=== PATIENT | female | born 1990 | race Caucasian/White ===

== ENCOUNTER 2024-04-30 05:24 | Emergency (ER) | payer BC ==
[~2024-04-30] VITALS: Ht 162.6 cm; Wt 77.2 kg
[2024-04-30] MEDS: normal saline 1000ML IV soln IVB ONE ×2 (06:05→10:36)
[2024-04-30 06:21] LABS: BASOPHILS % (AUTO) 0.3 % (0-1); EOSINOPHILS # (AUTO) 0.1 X10'3 (0-0.9); EOSINOPHILS % (AUTO) 1.4 % (0-6); HEMATOCRIT 39.7 % (35.0-45.0); HEMOGLOBIN 13.5 g/dl (12.0-16.0); LYMPHOCYTES # (AUTO) 1.4 X10'3 (1.1-4.8); LYMPHOCYTES % (AUTO) 17.7 % (21-51); MEAN CORPUSCULAR HEMOGLOBIN 29.5 PG (27.0-31.0); MEAN CORPUSCULAR HGB CONC 34.1 g/dL (33.0-36.5); MEAN CORPUSCULAR VOLUME 86.5 FL (78-98); MEAN PLATELET VOLUME 7.7 FL (7.4-10.4); MONOCYTES # (AUTO) 0.7 X10'3 (0-0.9); MONOCYTES % (AUTO) 8.5 % (2-12); NEUTROPHILS # (AUTO) 5.8 X10'3 (1.8-7.7); NEUTROPHILS % (AUTO) 72.1 % (42-75); PLATELET COUNT 253 X10'3 (140-440); RED BLOOD COUNT 4.59 X10'6 (4.20-5.60); RED CELL DISTRIBUTION WIDTH 12.9 % (11.5-14.5); WHITE BLOOD COUNT 8.1 X10'3 (4.5-11.0)
[2024-04-30 06:34] LABS: ALANINE AMINOTRANSFERASE 20 U/L (12-78); ALBUMIN 3.3 G/DL (3.4-5.0); ALBUMIN/GLOBULIN RATIO 0.9 (1.1-1.5); ALKALINE PHOSPHATASE 57 IU/L (46-116); ANION GAP 9 (8-16); ASPARTATE AMINO TRANSFERASE 13 U/L (10-37); BILIRUBIN,TOTAL 0.5 MG/DL (0.1-1.0); BLOOD UREA NITROGEN 9 MG/DL (7-18); BUN/CREATININE RATIO 11.7 (10.0-20.0); CALCIUM 8.5 MG/DL (8.5-10.1); CHLORIDE 107 MMOL/L (99-107); CREATININE 0.77 MG/DL (0.40-0.90); GLUCOSE 112 MG/DL (70-104); LIPASE 27 U/L (16-77); POTASSIUM 3.4 MMOL/L (3.5-5.1); SODIUM 141 MMOL/L (135-145); TOTAL CARBON DIOXIDE 24.7 MMOL/L (24-32); TOTAL PROTEIN 6.9 G/DL (6.4-8.2); eCRCL 90 ML/MIN; eGFR 86 ML/MIN
[2024-04-30 07:55] LABS: URINE HCG NEGATIVE (NEG)
[2024-04-30] MEDS: ketorolac trometh 15mg/ml vial 15 MG/ML ML IV ONE (07:58)
[2024-04-30 08:09] LABS: BILIRUBIN,URINE SMALL (Neg); CLARITY,URINE SLIGHTLY CLOUDY (Clear); COLOR,URINE YELLOW (Yellow); GLUCOSE, URINE NEGATIVE (Neg); KETONES,URINE 15 mg/dl (Neg); LEUKOCYTE ESTERASE ,URINE NEGATIVE (Neg); NITRITES, URINE NEGATIVE (Neg); OCCULT BLOOD,URINE MODERATE (Neg); PROTEIN,URINE TRACE mg/dl (Neg); UROBILINOGEN,URINE 0.2 E.U/dL (0.2-1.0)
[2024-04-30 08:10] LABS: UA COLLECTION TYPE CLN CATCH MIDSTREAM
[2024-04-30 08:26] LABS: CAL OXALATE CRYSTALS 1+ /HPF (NEGATIVE); MUCUS STRANDS MANY /LPF (Neg); SQUAMOUS EPITHELIAL CELL,UR MODERATE /LPF (FEW)
[2024-04-30 08:27] LABS: BACTERIA,URINE 2+ /HPF (Neg); RBC,URINE 20-50 /HPF (0-2)
[2024-04-30] MEDS ORDERED: sildenafil citrate 20mg tablet PO SCH (09:35)
[2024-04-30] MEDS: sildenafil citrate 20mg tablet PO ONE (10:36)
[2024-04-30] MEDS: CefTRIAXone 2gm/D5W 50ml BAG 50 ML IV ONE (11:06)
[2024-04-30] MEDS: morphine 4 MG/ML inj SYRINge IV ONE (11:28)
[2024-04-30] MEDS: bisacodyl 10mg suppository rectal RC ONE (11:46)
[2024-04-30] MEDS ORDERED: ONDA-243 PO (12:51)
[2024-04-30] MEDS ORDERED: CEPH-585 PO (12:53)
[2024-04-30 13:10] VITALS: BP 119/82; PULSE 70; RESP 16; TEMP 98.4; O2SAT 98
== END 2024-04-30 13:12 | disposition home or self-care (01) ==
LOC: ER 05:25
DX: N39.0 Urinary tract infection, site not specified (principal); K59.00 Constipation, unspecified; N12 Tubulo-interstitial nephritis, not specified as acute or chronic; Z79.2 Long term (current) use of antibiotics; Z79.899 Other long term (current) drug therapy
CPT/HCPCS: 36415; 74176; 80053; 81001; 81025; 83690; 85025; 87088; 96361; 96365; 96366; 96375; 99285; J0696; J1885; J2270; J7030

== ENCOUNTER 2024-07-22 09:56 | Emergency (ER) | payer BC ==
[~2024-07-22] VITALS: Ht 162.6 cm; Wt 77.3 kg
[~2024-07-22 09:56] MED LIST: ONDA-243 PO
[2024-07-22 09:58] VITALS: BP 138/86; PULSE 88; RESP 16; O2SAT 99
[2024-07-22] MEDS ORDERED: HYDR-3965 PO (10:43)
[2024-07-22 10:48] VITALS: TEMP 98
== END 2024-07-22 10:50 | disposition home or self-care (01) ==
LOC: ER 09:57
DX: S92.352A Displaced fracture of fifth metatarsal bone, left foot, initial encounter for closed fracture (principal); X50.1XXA Overexertion from prolonged static or awkward postures, initial encounter; Y93.89 Activity, other specified; Y92.89 Other specified places as the place of occurrence of the external cause; Y99.8 Other external cause status
CPT/HCPCS: 73610; 99283; L4360

== ENCOUNTER 2025-04-16 06:10 | Day surgery (SDC) | payer BC ==
[2025-04-09 10:32] LABS: MEAN PLATELET VOLUME 7.5 FL (7.4-10.4); PRE OP HEMATOCRIT 43.3 % (35.0-45.0); PRE OP HEMOGLOBIN 14.9 g/dL (12.0-16.0); PRE OP PLATELET COUNT 309 X10'3 (140-440); PRE OP WHITE BLOOD COUNT 6.4 10'3 (4.8-10.8); RED CELL DISTRIBUTION WIDTH 12.7 % (11.5-14.5)
[2025-04-09 10:41] LABS: HCG SERUM QL NEGATIVE
[2025-04-09 11:00] LABS: CREATININE 0.90 MG/DL (0.40-0.90); PRE OP ALT 25 U/L (30-65); PRE OP ANION GAP 8 (8-16); PRE OP AST 17 U/L (10-37); PRE OP BILIRUB, TOTAL 0.6 MG/DL (0.0-1.0); PRE OP GLUCOSE 90 MG/DL (70-104); PRE OP POTASSIUM 4.5 MMOL/L (3.4-5.1); PRE OP SODIUM 141 MMOL/L (135-145); TOTAL CARBON DIOXIDE 28.5 MMOL/L (24-32); eGFR 72 ML/MIN
[~2025-04-16] VITALS: Ht 152.4 cm; Wt 74.8 kg
[2025-04-16] VITALS (17 sets, daily range): BP systolic 111–127; BP diastolic 76–92; PULSE 63–89; RESP 16–21; TEMP 97.8; O2SAT 82–100
[2025-04-16] MEDS: ceFAZolin 2gm/dext,iso 50mL 50 ML IV ONE (05:30)
[~2025-04-16 06:10] MED LIST changes: +CHOL200074 PO; -ONDA-243 PO; +SUPER B COMPLEX PO
[2025-04-16] MEDS: INDOCYANINE GREEN 25 MG/10 ML VIAL IV ONE (06:43)
[2025-04-16] MEDS: ringers solution, lacted 1,000 ML IV SCH (06:43)
[2025-04-16] MEDS ORDERED: BUPIVAcaine 2.5mg/ml inj 50ml vial (contains preservative) ONE (07:06)
[2025-04-16] MEDS ORDERED: LIDOcaine 1% 30ml preserv. free vial ONE (07:06)
[2025-04-16] MEDS ORDERED: midazolam 1 mg/ML 2ml injection ONE (08:01)
[2025-04-16] MEDS ORDERED: fentaNYL/PF 50MCG/1 ML 2ML syringe ONE (08:01)
--- NOTE | 2025-04-16 08:07 | HISTORY AND PHYSICAL ---
History & Physical Providers to CC CC: ZOFIA ANGEL MD ~ History of Present Illness Reason for Admit\Complaint: Symptomatic cholelithiasis History of Present Illness Patient with known symptomatic cholelithiasis This is an interval history and physical exam She was seen in the office greater than 30 days ago but denies any change in her past medical history She is scheduled for robotic assisted, laparoscopic possible open cholecystectomy Allergies: Coded Allergies: No Known Allergies (Unverified , 04/30/24) Home Medications Home Medications Active Reported Vitamin D3 (Cholecalciferol (Vitamin D3)) 50 Mcg (2000 Unit) Capsule 1 Cap PO DAILY 30 Days [Super B Complex] 1 Tab PO DAILY ROS ROS Reviewed and negative with the exception of biliary colic Exam Chest: Lungs clear to auscultation bilaterally Cardiovascular: Regular rate and rhythm without murmur Abdomen: Soft and nondistended Problems: (1) Symptomatic cholelithiasis Assessment & Plan: The risks, benefits, and alternatives to a robotic assisted, laparoscopic possible open cholecystectomy were discussed with the patient. Risks include, but are not limited to, bleeding, infection, injury to intra- abdominal structures, injury to the biliary tree, postoperative bile leak and retained common bile duct stone. Patient verbalized understanding and wishes to proceed with surgery. We will do so today as scheduled ZOFIA ANGEL MD Apr 16, 2025 08:07
[2025-04-16] MEDS ORDERED: dexamethasone sod phosphate 4mg/ml inj. ONE (08:13)
[2025-04-16] MEDS ORDERED: propofol inj 20 ML IV ONE (08:13)
[2025-04-16] MEDS ORDERED: rocuronium 10mg/ml inj IV ONE (08:13)
[2025-04-16] MEDS ORDERED: ondansetron/PF 4mg/2ml inj ONE (08:13)
[2025-04-16] MEDS ORDERED: LIDOcaine 2% (20mg/ml) 5ml vial ONE (08:14)
[2025-04-16] MEDS ORDERED: morphine 4 MG/ML inj SYRINge ONE (08:17)
[2025-04-16] MEDS: BUPIVAcaine/PF 2.5 mg/ml (0.25%) 30ml vial IJ ONE (08:21)
[2025-04-16] MEDS: LIDOcaine 1% 30ml preserv. free vial IJ ONE (08:21)
[2025-04-16] MEDS ORDERED: enalaprilat 1.25mg/ml 2ml vial IV PRN (08:30)
[2025-04-16] MEDS ORDERED: labetalol 20mg/4ml (5mg/ml) syringe IV PRN (08:30)
[2025-04-16] MEDS ORDERED: HYDROmorphone/PF 0.2 MG/ML SYRINGE IV PRN ×2 (08:30)
[2025-04-16] MEDS ORDERED: morphine 4 MG/ML inj SYRINge IV PRN (08:30)
[2025-04-16] MEDS ORDERED: ringers solution, lacted 1,000 ML IV SCH (08:30)
[2025-04-16] MEDS ORDERED: fentaNYL/PF 50MCG/1 ML 2ML syringe IV PRN ×2 (08:30)
[2025-04-16] MEDS ORDERED: acetaminophen 1,000mg/100ml IV 100 ML IV ONE (08:56)
--- NOTE | 2025-04-16 09:22 | OPERATIVE REPORT ---
Operative Report Providers to CC CC: GIUSEPPE ANGEL MD ~ Date of Procedure: Apr 16, 2025 Pre-Operative Diagnosis: Symptomatic cholelithiasis Post-Operative Diagnosis SAME as PRE-Op Procedure Performed Robotic assisted, laparoscopic cholecystectomy Surgeon: Giuseppe Angel MD FACS [employer] None Anesthesiologist: Bertrand Brice Type of Anesthesia: General Findings: Clear visualization of the critical view of safety, confirmed with fluorescent cholangiography/firefly Wound class II Complications None Prosthetics\Implants used: None Estimated Blood Loss: Minimal Specimen Removed: Gallbladder Description of Procedure: Patient was brought to the operating room and identified by the nursing staff and the attending physician. Patient was placed supine and general anesthesia was induced. A supraumbilical, midline incision was made, long enough to accommodate a 12 mm Nelson port. Nelson technique was used to gain entry into the abdomen. Stay sutures were placed in the Nelson port anchored to the fascia. Abdomen was insufflated without incident. Laparoscope was inserted and the abdomen surveyed. Secondary, 8.5 mm robotic trochars were placed in the left upper quadrant and right lateral abdomen. Gallbladder was readily identified. There were some findings consistent with chronic cholecystitis. Robotic arm was docked to the patient. Robotic instruments were guided intra- abdominally under laparoscopic visualization. Fundus of the gallbladder was grasped and retracted over the dome of the liver. Infundibulum was retracted towards the right lower quadrant. Firefly technology was used to obtain a fluorescent cholangiogram and visualize the pertinent anatomy. Cystic duct was clearly visualized. Peritoneum overlying the triangle was incised with hook electrocautery. This allowed for circumferential dissection of the cystic duct and artery. Critical view of safety was obtained. Duct and artery were then clipped with hemo-lock clips and both structures divided. Gallbladder was retracted laterally and dissected out of the gallbladder fossa. Gallbladder was set aside and fluorescent cholangiogram of the gallbladder fossa was used to confirm no evidence of bile leak. Gallbladder was placed in a laparoscopic retrieval bag. Secondary trochars were removed and the abdomen allowed to deflate. Nelson port was removed with the specimen in its retrieval bag. Fascia at the umbilical port site was closed with 0 Vicryl sutures. Skin was closed with 4-0 Monocryl suture About 40 cc of local anesthetic was used during the case. Sterile dressings were applied. Patient was awakened and taken to the postanesthesia care unit in stable condition. Counts repoted as correct: Yes GIUSEPPE ANGEL MD Apr 16, 2025 09:22
[2025-04-16] MEDS: ondansetron/PF 4mg/2ml inj IV PRN (09:47)
[2025-04-16] MEDS: oxyCODONE/APAP 5-325mg tablet PO PRN (11:23)
--- NOTE | 2025-04-17 12:04 | PATHOLOGY REPORT ---
[facility] [address] [place] [address] SURGICAL PATHOLOGY REPORT CaseNumber: [id number] Surgeon:Giuseppe Mac M.D. CLINICAL INFORMATION CLINICAL INFORMATION: Cholelithiasis. DIAGNOSIS DIAGNOSIS: GALLBLADDER, ROBOTIC ASSISTED LAPAROSCOPIC MIRANDA - MILD CHOLECYSTITIS WITH FEATURES OF CHRONICITY AND CHOLELITHIASIS - NO DYSPLASIA OR MALIGNANCY MICROSCOPIC DESCRIPTION MICROSCOPIC DESCRIPTION: Performed. GROSS DESCRIPTION GROSS DESCRIPTION: Received in a container of formalin labeled with the patient's name, number, and "gallbladder" is an intact gallbladder which measures 10 cm long by 3.5 cm in diameter. The serosa is smooth and purple-trejo. The surgical bed is unremarkable. Sectioning reveals a moderate amount of visc ous dark green bile and approximately 20 faceted yellow stones which measure 0.4-1.4 cm. The mucosa is red and granular. A discrete mass lesion is not identified. The wall of the gallbladder measures up to 0.3 cm thick. Speech Pathology Supervisor sections of the neck and wall of the gallbladder are submitted as A1.The time at which the specimen was removed was 0845. The time at which the specimen was placed in formalin was 0855. (mib) Electronically signed by: Anton Flores M.D. 04/17/2025 9:09:00 AM
== END 2025-04-16 11:47 | disposition home or self-care (01) ==
LOC: PAS 06:10
PROVIDERS: ATTEND Surgery
DX: K80.10 Calculus of gallbladder with chronic cholecystitis without obstruction (principal); Z79.899 Other long term (current) drug therapy
CPT/HCPCS: 36415; 47563; 80053; 82948; 84703; 85025; J0131; J1100; J2003; J2250; J2270; J2405; J2704; J3010; J3490; J7030; J7120; S2900; Z7506; Z7508; Z7512; A4215; A4618; A7000